=== PATIENT | female | born 1955 | race American Indian/Alaskan Native ===

== ENCOUNTER 2018-06-23 12:59 | Emergency (ER) | payer MEDICAID, OTHER ==
[2018-06-23 13:07] VITALS: RESP 18
--- NOTE | 2018-06-23 13:53 | C.PDOC ---
History Of Present Illness 62 year old female presents to ED with her daughter s/p fall that occurred today at 1000. Patient's daughter states that patient was walking on [address] when she tripped on uneven pavement and fell forward injuring her bilateral hands and face. Patient was able to get up and walk back home. When she was home she was experiencing pain to her bilateral hands, nose, and face. Patient reports that at the time her nose was bleeding, but it has since resolved. Patient denies loss of consciousness, numbness, weakness, visual changes, and vomiting. Time Seen by Provider: 06/23/18 13:08 Chief Complaint (Nursing): Abnormal Skin Integrity History Per: Patient, Family (daughter) History/Exam Limitations: no limitations Onset/Duration Of Symptoms: Hrs (4) Current Symptoms Are (Timing): Still Present Location Of Injury: Right: Hand, Left: Hand, Anterior: Face Quality Of Symptoms: Painful Past Medical History Reviewed: Historical Data, Nursing Documentation, Vital Signs Vital Signs: Last Vital Signs Temp 97.8 F 06/23/18 13:03 Pulse 95 H 06/23/18 13:03 Resp 18 06/23/18 13:03 BP 168/98 H 06/23/18 13:03 Pulse Ox 98 06/23/18 13:03 - Medical History PMH: HTN Surgical History: No Surg Hx Family History: States: Unknown Family Hx - Social History Hx Alcohol Use: No Hx Substance Use: No - Immunization History Hx Tetanus Toxoid Vaccination: No Hx Influenza Vaccination: No Hx Pneumococcal Vaccination: No Review Of Systems Constitutional: Negative for: Weakness Eyes: Negative for: Vision Change ENT: Positive for: Nose Pain, Other (face pain) Gastrointestinal: Negative for: Vomiting Musculoskeletal: Positive for: Hand Pain (bilaterally) Neurological: Negative for: Weakness, Numbness, Other (loss of consciousness) Physical Exam - Physical Exam Appears: Well, Non-toxic, No Acute Distress Skin: Normal Color, Warm, Dry, No Ecchymosis Head: Abrasion (Abrasions to the right cheek and nose) Eye(s): bilateral: Normal Inspection, PERRL, EOMI Ear(s): Bilateral: Normal Nose: No Discharge, Epistaxis (dried epistaxis to the left nare), No Septal Hematoma Tongue: Normal Appearing, No Swelling Lips: Normal Appearing, No Swelling Teeth: Normal Dentition, No Tender To Palpation, No Loose Throat: No Erythema, No Exudate Neck: Normal ROM, Supple Chest: Symmetrical, No Deformity Cardiovascular: Rhythm Regular, No Murmur Respiratory: No Accessory Muscle Use, No Rales, No Rhonchi, No Wheezing Gastrointestinal/Abdominal: Soft, No Tenderness Back: Normal Inspection, No CVA Tenderness, No Vertebral Tenderness, No Paraspinal Tenderness Extremity: Normal ROM, Capillary Refill (<2 seconds), No Swelling, Other (Mild tenderness to the bilateral dorsal hands) Pulses: Left Radial: Normal, Right Radial: Normal, Left Dorsalis Pedis: Normal, Right Dorsalis Pedis: Normal Neurological/Psych: Oriented x3, Normal Speech, Normal Cognition, Normal Motor, Normal Sensation Gait: Steady ED Course And Treatment O2 Sat by Pulse Oximetry: 98 (in RA) Pulse Ox Interpretation: Normal - CT Scan/US Head CT Other Rad Studies (CT/US): Interpreted By Me, Read By Radiologist CT/US Interpretation: IMPRESSION: No acute intracranial abnormalities. No significant findings to account for the clinical presentation. Medical Decision Making Medical Decision Making: Initial Plan: Head CT Maxillofacial CT Bilateral Hand X-ray Tylenol PO Wounds were cleansed with sterile saline and bacitracin applied. CT scan and xrays were negative. the results were discussed with the patient. On re-exam, the patient reports improvement of symptoms. Lungs are CTA, heart is RRR, abdomen is soft, non-tender and tolerating PO well. Ambulatory in the ED with steady gait. Follow up with the medical doctor within 1-2 days. Return if worsened. Disposition - Disposition Referrals: Berlin Cook MD [Staff Provider] - Danny Alberto MD [Staff Provider] - Disposition: HOME/ ROUTINE Disposition Time: 15:09 Condition: GOOD Additional Instructions: Follow up with the medical doctor within 1-2 days. Return if worsened. Prescriptions: Bacitracin Ointment [Bacitracin] 30 gm TOP BID #1 tube Ibuprofen [Motrin] 600 mg PO TID #21 tab Instructions: Minor Head Injury (DC) Forms: [employer] (Danish), Work Excuse - Clinical Impression Clinical Impression: Head injury, Facial contusion, Hand sprain - PA / DELIVERY PERSON / Resident Statement MD/DO has reviewed & agrees with the documentation as recorded. (Sherrell Cooper) - Scribe Statement The provider has reviewed the documentation as recorded by the Scribe (Sherrell Cooper) All medical record entries made by the Scribe were at my direction and personally dictated by me. I have reviewed the chart and agree that the record accurately reflects my personal performance of the history, physical exam, medi jessica decision making, and the department course for this patient. I have also personally directed, reviewed, and agree with the discharge instructions and disposition.
--- NOTE | 2018-06-23 14:18 | CT ---
Date of service: 06/23/2018 PROCEDURE: CT HEAD WITHOUT CONTRAST. HISTORY: head injyr COMPARISON: None available. TECHNIQUE: Axial computed tomography images were obtained through the head/brain without intravenous contrast. Supplemental Coronal and Sagittal projections created and reviewed. Radiation dose: Total exam DLP = 857.21 mGy-cm. This CT exam was performed using one or more of the following dose reduction techniques: Automated exposure control, adjustment of the mA and/or kV according to patient size, and/or use of iterative reconstruction technique. FINDINGS: HEMORRHAGE: No intracranial hemorrhage. BRAIN: No mass effect or edema. No atrophy or chronic microvascular ischemic changes. VENTRICLES: Unremarkable. No hydrocephalus. CALVARIUM: Unremarkable. PARANASAL SINUSES: Unremarkable as visualized. No significant inflammatory changes. MASTOID AIR CELLS: Unremarkable as visualized. No inflammatory changes. OTHER FINDINGS: None. IMPRESSION: No acute intracranial abnormalities. No significant findings to account for the clinical presentation.
--- NOTE | 2018-06-23 15:05 | CT ---
Date of service: 06/23/2018 CT maxillofacial bones without IV contrast Indication: facial trauma, epistaxis Comparison: Noncontrast head CT performed the same day. Technique: Axial computed tomography images were obtained of the maxillofacial bones without the use of intravenous contrast. Coronal and sagittal reformatted images were generated and reviewed. This CT exam was performed using 1 or more of the following dose reduction techniques: Automated exposure control, adjustment of the MAA and/or kV according to patient size, and/or use of iterative reconstruction technique. Radiation dose: Total exam DLP = 749.73 mGy-cm. Findings: The facial bones appear unremarkable without acute displaced fracture. The orbits appear unremarkable. The temporomandibular joints appear located. The mastoid air cells appear clear. The paranasal sinuses appear clear. The visualized brain appears unremarkable. The soft tissues appear unremarkable. Multilevel degenerative changes of the included portions of the cervical spine. Impression: No acute findings identified. See above.
[2018-06-23 15:06] VITALS: BP 162/86; PULSE 86; TEMP 98.4
[2018-06-23 15:09] VITALS: O2SAT 98
--- NOTE | 2018-06-23 15:18 | RAD ---
PROCEDURE: Bilateral hand radiographs. HISTORY: bilateral hand injury COMPARISON: None available. TECHNIQUE: 6 views obtained. FINDINGS: BONES: Right Hand: Well corticated tiny ossific density adjacent to the ulna. No acute displaced fracture identified. Left Hand: No acute displaced fracture identified. Partially imaged evidence of healed fracture deformity of the ulna. JOINTS: Right Hand: Normal. Left Hand: Normal. SOFT TISSUES: Right Hand: Normal. Left Hand: Normal. OTHER FINDINGS: None. IMPRESSION: No acute displaced fracture identified. Findings as above.
== END 2018-06-23 15:15 | disposition home or self-care (01) ==
LOC: C.ER 12:59
DX: S00.83XA Contusion of other part of head, initial encounter (principal); S63.90XA Sprain of unspecified part of unspecified wrist and hand, initial encounter; W01.0XXA Fall on same level from slipping, tripping and stumbling without subsequent striking against object, initial encounter; Y93.01 Activity, walking, marching and hiking; Y92.480 Sidewalk as the place of occurrence of the external cause